=== PATIENT | female | born 1955 | race Caucasian/White ===

== ENCOUNTER 2016-06-26 10:40 | Emergency (ER) | payer OTHER ==
[~2016-06-26] VITALS: Ht 160 cm; Wt 69.9 kg
[2016-06-26 10:51] VITALS: BP 143/78
--- NOTE | 2016-06-26 10:56 | NUR ---
Patient ambulated to bed 05.
--- NOTE | 2016-06-26 11:02 | NUR ---
60 F PT FALL DOWN STAIRS YESTERDAY WITH C/O LEFT SIDED CHEST PAIN AND LEFT UPPER BACK PAIN;PT DENIES HITTING HER HEAD;DENIES SOB/N/V/F AT THIS TIME;PAIN SCALE OF 6/10;STEADY GAIT;UNLABORED BREATHING;AAOX4;NO ACUTE DISTRESS NOTED AT THIS TIME;HOB ELEVATED;NEEDS ATTENDED;SAFETY MEASURES DONE;MD FRIEND AWARE OF PT'S CONDITION;
--- NOTE | 2016-06-26 11:13 | NUR ---
PT WENT TO XRAY ACCOMPANIED BY TECH;NO ACUTED ISTRESS NOTED AT THIS TIME;WILL CONTINUE TO MONITOR PT.
--- NOTE | 2016-06-26 11:28 | NUR ---
Patient back from XRAY via wheelchair per tech.
--- NOTE | 2016-06-26 11:28 | NUR ---
Markie rouse in ED - 06/26/16 at 1129 by ABRAM PT BACK FROM XRAY;NO ACUTE DISTRESS NOTED AT THIS TIME;WILL CONTINUE TO MONITOR PT.
--- NOTE | 2016-06-26 11:32 | NUR ---
DR MONTEZ AT BEDSIDE.
[2016-06-26] MEDS ORDERED: KETOROLAC 60 MG/2 ML VIAL IM ONE (11:40)
--- NOTE | 2016-06-26 11:52 | NUR ---
PT RESTING ON BED; AT BEDSIDE;NO ACUTE DISTRESS NOTED;WILL CONTINUE TO MONITOR PT.
--- NOTE | 2016-06-26 12:41 | NUR ---
Patient discharged with v/s stable. Written and verbal after care instructions given and explained.Patient alert, oriented and verbalized understanding of instructions. Carried with steady gait. All questions addressed prior to discharge. ID band removed. Patient advised to follow up with PMD. Rx of MOTRIN given. Patient educated on indication of medication including possible reaction and side effects. Opportunity to ask questions provided and answered.
[2016-06-26 12:42] VITALS: BP 150/81
== END 2016-06-26 12:41 | disposition home or self-care (01) ==
LOC: MED 10:40
DX: S20.212A Contusion of left front wall of thorax, initial encounter (principal); I10 Essential (primary) hypertension; Z90.710 Acquired absence of both cervix and uterus; Z88.6 Allergy status to analgesic agent; Z80.9 Family history of malignant neoplasm, unspecified; W19.XXXA Unspecified fall, initial encounter; Y93.89 Activity, other specified; Y92.89 Other specified places as the place of occurrence of the external cause; Y99.8 Other external cause status
CPT/HCPCS: 71101; 96372; 99284; J1885

== ENCOUNTER 2016-08-11 19:36 | Emergency (ER) | payer OTHER ==
[~2016-08-11] VITALS: Ht 160 cm; Wt 59.0 kg
[2016-08-11 19:37] VITALS: BP 141/82
--- NOTE | 2016-08-11 21:12 | NUR ---
TO ER BED 4
--- NOTE | 2016-08-11 21:15 | NUR ---
60 Y/O F W/C/O LOWER BACK PAIN WHICH RADIATES TO ABD, NAUSEA, VOMITING AND CHILLS X 2 DAYS. DENIES ANY BURNING WITH URINATION BUT STATES HAS HAD FREQUENT URINATION FOR THESE TWO DAYS. ER MADE AWARE.
[2016-08-11] MEDS ORDERED: NACL 0.9% 1,000 ML IV ONE (21:37)
[2016-08-11] MEDS ORDERED: ONDANSETRON 4 MG/2 ML VIAL IVP ONE (21:40)
[2016-08-11] MEDS ORDERED: MORPHINE SULFATE 4 MG/ML SYR IVP ONE (21:40)
[2016-08-11] MEDS ORDERED: DICYCLOMINE HCL LIQUID 20 MG, ALUMINUM HYD/MAG/SIMETHICONE 30 ML, LIDOCAINE VISCOUS 2% ... PO ONE (21:45)
--- NOTE | 2016-08-12 02:43 | NUR ---
Patient to be transferred to [facility]. Is being transferred due to . HIGHER LEVEL OF CARE Receiving facility has accepting physician and available space. ER physician has signed transfer form. Patient or responsible democrat has agreed to transfer and signed form. Patient belongings inventoried and will be sent with patient. Copy of nursing notes, lab reports, EKG, Physicians Orders and X-rays to be sent with patient. Report called to АННА HERMAN RN at receiving facility. [facility] has been called for transfer. ETA is 60 MINUTES.
[2016-08-12] MEDS ORDERED: ONDANSETRON 4 MG/2 ML VIAL IVP ONE (03:15)
[2016-08-12] MEDS ORDERED: MORPHINE SULFATE 4 MG/ML SYR IVP ONE (03:15)
[2016-08-12] MEDS ORDERED: MORPHINE SULFATE 4 MG/ML SYR ONE (03:20)
[2016-08-12] MEDS ORDERED: ONDANSETRON 4 MG/2 ML VIAL ONE (03:21)
[2016-08-12 03:26] VITALS: BP 132/68
--- NOTE | 2016-08-12 03:26 | NUR ---
PT TAKING BY [facility]IA AMBULANCE. MORPHINE AND ZOFRAN GIVEN BEFORE TRASFER D/T PAIN INCREASING. NO S/S OF DISTRESS NOTED ON DC.
[2016-10-05] MEDS ORDERED: LOPID600 MG PO (21:09)
[2016-10-05] MEDS ORDERED: TRAMADOL HCL50 MG PO (21:09)
[2016-10-05] MEDS ORDERED: MOTRIN600 MG PO (21:09)
[2016-10-05] MEDS ORDERED: VASOTEC20 M1 PO (21:09)
== END 2016-08-12 03:26 | disposition short-term general hospital (02) ==
LOC: MED 19:36
DX: N28.89 Other specified disorders of kidney and ureter (principal); R58 Hemorrhage, not elsewhere classified; R10.9 Unspecified abdominal pain; I10 Essential (primary) hypertension; E78.5 Hyperlipidemia, unspecified; Z88.6 Allergy status to analgesic agent; Z85.9 Personal history of malignant neoplasm, unspecified; Z90.710 Acquired absence of both cervix and uterus
CPT/HCPCS: 36415; 74176; 76705; 80053; 81001; 81025; 83690; 85025; 85610; 86886; 86900; 86901; 87086; 96361; 96374; 96375; 96376; 99291; J2270; J2405; J7030; Q0092

== ENCOUNTER 2016-10-05 20:58 | Emergency (ER) | payer OTHER ==
[~2016-10-05] VITALS: Ht 160 cm; Wt 68.9 kg
--- NOTE | 2016-10-05 20:58 | NUR ---
Patient was BIBA at this time.
[2016-10-05 21:00] VITALS: BP 141/86
--- NOTE | 2016-10-05 21:00 | NUR ---
PT TO OVERFLOW.
--- NOTE | 2016-10-05 21:06 | NUR ---
PATIENT BIBA FOR EVALUATION OF RIGHT ANKLE PAIN . PT STATES SHE WAS DANCING IN HER KITCHEN, FELL,TWISTING HER RIGHT ANKLE, FEELING IMMEDIATE PAIN . DENIES N/V/D; SWELLING NOTED TO RIHT ANKLE, SKIN IS OTHERWISE PINK/WARM/DRY; AAOX4 WITH EVEN AND STEADY GAIT; LUNGS CLEAR BL; HR EVEN AND REGULAR; PT DENIES ANY FEVER, CP, SOB, OR COUGH AT THIS TIME; PATIENT STATES PAIN OF 4/10 AT THIS TIME; VSS. ER MD MADE AWARE OF PT STATUS.
[2016-10-05] MEDS ORDERED: TRAM50TA3 PO (21:09)
[2016-10-05] MEDS ORDERED: ENAL20TA46 PO (21:09)
[2016-10-05] MEDS ORDERED: IBUP-2213 PO (21:09)
[2016-10-05] MEDS ORDERED: GEMF600T5 PO (21:09)
--- NOTE | 2016-10-05 21:21 | NUR ---
Patient taken to XRAY via wheelchair per tech.
--- NOTE | 2016-10-05 21:47 | NUR ---
[facility]
--- NOTE | 2016-10-05 21:49 | NUR ---
Dr. Wade evaluating patient.
--- NOTE | 2016-10-05 22:18 | NUR ---
Patient taken to bed 08 via wheelchair per RN.
[2016-10-05 23:04] VITALS: BP 141/86
--- NOTE | 2016-10-05 23:04 | NUR ---
Patient discharged with v/s stable. Written and verbal after care instructions given and explained. Patient alert, oriented and verbalized understanding of instructions. Ambulatory with steady gait. All questions addressed prior to discharge. ID band removed. Patient advised to follow up with PMD. Rx of ROXICODONE AND IBUPROFEN given. Patient educated on indication of medication including possible reaction and side effects. Opportunity to ask questions provided and answered.
== END 2016-10-05 23:04 | disposition home or self-care (01) ==
LOC: MED 20:58
DX: S82.831A Other fracture of upper and lower end of right fibula, initial encounter for closed fracture (principal); S82.301A Unspecified fracture of lower end of right tibia, initial encounter for closed fracture; I10 Essential (primary) hypertension; E78.5 Hyperlipidemia, unspecified; Z88.6 Allergy status to analgesic agent; Z85.9 Personal history of malignant neoplasm, unspecified; W18.30XA Fall on same level, unspecified, initial encounter; Y93.41 Activity, dancing; Y92.090 Kitchen in other non-institutional residence as the place of occurrence of the external cause; Y99.8 Other external cause status
CPT/HCPCS: 29505; 73590; 73610; 99284

== ENCOUNTER 2016-10-10 12:19 | Emergency (ER) | payer OTHER ==
[~2016-10-10] VITALS: Ht 160 cm; Wt 68.9 kg
[~2016-10-10 12:19] MED LIST: ENAL20TA46 PO; GEMF600T5 PO; IBUP-2213 PO; TRAM50TA3 PO
[2016-10-10 12:41] VITALS: BP 123/93
--- NOTE | 2016-10-10 12:41 | NUR ---
Patient to bed 07.
--- NOTE | 2016-10-10 12:54 | NUR ---
61/F PRESENTS TO ER W/C/O RIGHT LEG PAIN. HX RIGHT TIB/FIB FX 10/05/16-NO F/U W/ORTHO TO DATE. PAIN 09/16 ACHING NON-RADIATING. AAOx4, PERRLA, BREATHING EVEN EFFORTLESS. ERMD NOTIFIED OF PATIENT STATUS.
--- NOTE | 2016-10-10 13:21 | NUR ---
Dr. Tolliver evaluating patient at bedside.
--- NOTE | 2016-10-10 13:36 | NUR ---
Patient discharged with v/s stable. Written and verbal after care instructions given and explained. Patient verbalized understanding. Ambulatory with steady gait. All questions addressed prior to discharge. Advised to follow up with PMD.
[2016-10-10 13:38] VITALS: BP 127/88
== END 2016-10-10 13:36 | disposition home or self-care (01) ==
LOC: MED 12:19
DX: S82.831A Other fracture of upper and lower end of right fibula, initial encounter for closed fracture (principal); S82.391A Other fracture of lower end of right tibia, initial encounter for closed fracture; X58.XXXA Exposure to other specified factors, initial encounter; Y93.89 Activity, other specified; Y92.89 Other specified places as the place of occurrence of the external cause; Y99.8 Other external cause status
CPT/HCPCS: 99283

== ENCOUNTER 2017-09-16 10:58 | Emergency (ER) | payer OTHER ==
[~2017-09-16] VITALS: Ht 160 cm; Wt 73.9 kg
[2017-09-16 11:03] VITALS: BP 138/61
--- NOTE | 2017-09-16 11:06 | NUR ---
PT AMB TO BED 6
--- NOTE | 2017-09-16 11:07 | NUR ---
62/F BIB WITH c/o awoke this 10am with burning pain to BOTH EYES ; denies exposure to chemicals ; mild redness to sclera; denies visual changes. hx---htn,hyperlipidemia.DENIES N/V/D; SKIN IS PINK/WARM/DRY; AAOX4 WITH EVEN AND STEADY GAIT; LUNGS CLEAR BL; HR EVEN AND REGULAR; PT DENIES ANY FEVER, CP, SOB, OR COUGH AT THIS TIME; PATIENT STATES PAIN OF 6/10 AT THIS TIME; VSS; PATIENT POSITIONED FOR COMFORT; HOB ELEVATED; BEDRAILS UP X2; BED DOWN. ER MD MADE AWARE OF PT STATUS.
[2017-09-16 12:00] VITALS: BP 148/72
--- NOTE | 2017-09-16 12:01 | NUR ---
Patient discharged with v/s stable. Written and verbal after care instructions given and explained. Patient alert, oriented and verbalized understanding of instructions. Ambulatory with steady gait. All questions addressed prior to discharge. ID band removed. Patient advised to follow up with PMD. Rx of EYE DROPS given. Patient educated on indication of medication including possible reaction and side effects. Opportunity to ask questions provided and answered.
== END 2017-09-16 12:00 | disposition home or self-care (01) ==
LOC: MED 10:58
DX: H57.13 Ocular pain, bilateral (principal); I10 Essential (primary) hypertension; E78.00 Pure hypercholesterolemia, unspecified; Z88.8 Allergy status to other drugs, medicaments and biological substances
CPT/HCPCS: 99283

== ENCOUNTER 2022-11-18 13:30 | Emergency (ER) | payer OTHER ==
[~2022-11-18] VITALS: Ht 160 cm; Wt 61.2 kg
[2022-11-18 13:57] VITALS: BP 110/61; PULSE 76; RESP 18; TEMP 98.1; O2SAT 100
[2022-11-18 15:44] LABS: BASOPHILS # (AUTO) 0.1 K/uL (0.00-0.22); BASOPHILS % (AUTO) 1.4 % (0.0-2.0); EOSINOPHILS # (AUTO) 0.2 K/uL (0-0.4); EOSINOPHILS % (AUTO) 4.1 % (0.0-4.0); HEMATOCRIT 33.8 % (36-48); HEMOGLOBIN 11.8 g/dL (12.0-16.0); LYMPHOCYTES # (AUTO) 1.9 K/uL (2.5-16.5); LYMPHOCYTES % (AUTO) 43.9 % (20.5-51.1); MEAN CORPUSCULAR HEMOGLOBIN 36 pg (27-31); MEAN CORPUSCULAR HGB CONC 35 g/dL (33-37); MEAN CORPUSCULAR VOLUME 102.4 fL (80-94); MONOCYTES # (AUTO) 0.3 K/uL (0.8-1.0); NEUTROPHILS # (AUTO) 1.8 K/uL (1.8-7.7); NEUTROPHILS % (AUTO) 42.6 % (42.2-75.2); PLATELET COUNT (AUTO) 125 K/uL (140-450); RED CELL DISTRIBUTION WIDTH 12.4 % (11.6-13.7); WHITE BLOOD COUNT (AUTO) 4.3 K/uL (4.8-10.8)
[2022-11-18 16:11] LABS: ALANINE AMINOTRANSFERASE 28 U/L (12-78); ALBUMIN 3.3 g/dL (3.4-5.0); ALKALINE PHOSPHATASE 225 U/L (50-136); ANION GAP 13.6 (8-16); ASPARTATE AMINOTRANSFERASE 47 U/L (15-37); CALCIUM 8.7 mg/dL (8.5-10.1); CARBON DIOXIDE 27.8 mmol/L (21-32); CHLORIDE 96 mmol/L (98-107); CREATININE 0.9 mg/dL (0.6-1.3); GFR ARICAN-AMERICAN 81 mL/min (>90); GFR NON ARICAN-AMERICAN 67 mL/min (>90); GLUCOSE 103 mg/dL (74-106); POTASSIUM 3.4 mmol/L (3.5-5.1); SODIUM SERUM 134 mmol/L (136-145); TOTAL BILIRUBIN 0.6 mg/dL (0.0-1.0); TOTAL PROTEIN, SERUM 8.3 g/dL (6.4-8.2); UREA NITROGEN, BLOOD 11 mg/dL (7-18)
== END 2022-11-18 16:34 | disposition home or self-care (01) ==
LOC: MED 13:30
DX: S09.90XA Unspecified injury of head, initial encounter (principal); F10.90 Alcohol use, unspecified, uncomplicated; R55 Syncope and collapse; D64.9 Anemia, unspecified; I10 Essential (primary) hypertension; Z85.9 Personal history of malignant neoplasm, unspecified; Z88.8 Allergy status to other drugs, medicaments and biological substances; Z88.6 Allergy status to analgesic agent; Z79.899 Other long term (current) drug therapy; Y90.6 Blood alcohol level of 120-199 mg/100 ml; W18.30XA Fall on same level, unspecified, initial encounter; Y93.89 Activity, other specified; Y92.89 Other specified places as the place of occurrence of the external cause; Y99.8 Other external cause status
CPT/HCPCS: 36415; 70450; 71045; 72125; 80053; 84484; 85025; 93005; 99285; G0482

== ENCOUNTER 2023-10-12 17:53 | Emergency (ER) | payer MEDICARE, OTHER ==
[~2023-10-12] VITALS: Ht 160 cm; Wt 65.8 kg
[2023-10-12 18:00] VITALS: BP 154/62; PULSE 85; RESP 18; TEMP 97.7; O2SAT 100
[2023-10-12 18:20] VITALS: BP 154/62; PULSE 85; RESP 18; TEMP 97.7; O2SAT 100
== END 2023-10-12 18:20 | disposition home or self-care (01) ==
LOC: MED 17:53
DX: R60.0 Localized edema (principal); K74.60 Unspecified cirrhosis of liver; I10 Essential (primary) hypertension; Z85.9 Personal history of malignant neoplasm, unspecified; Z79.1 Long term (current) use of non-steroidal anti-inflammatories (NSAID); Z79.899 Other long term (current) drug therapy; Z88.6 Allergy status to analgesic agent
CPT/HCPCS: 99281